=== PATIENT | male | born 1985 | race Caucasian/White ===

== ENCOUNTER 2017-06-30 13:18 | Emergency (ER) | payer SELFPAY ==
[2017-06-30] MEDS ORDERED: Famotidine 20 MG TAB ONE (13:45)
[2017-06-30] MEDS ORDERED: methylPREDNISolone Sod Succ/PF 125 MG/2 ML VIAL ONE (13:45)
== END 2017-06-30 14:00 | disposition home or self-care (01) ==
LOC: MADERS 13:18
DX: L23.7 Allergic contact dermatitis due to plants, except food (principal)
CPT/HCPCS: 96374; J2930